=== PATIENT | male | born 1980 | race Caucasian/White ===

== ENCOUNTER 2019-02-24 04:07 | Emergency (ER) | payer OTHER ==
[~2019-02-24] VITALS: Ht 170.2 cm; Wt 94.5 kg
[2019-02-24] MEDS ORDERED: insulin regular, human 10 units/0.1 ml syringe SQ ONE ×3 (04:50→06:25)
--- NOTE | 2019-02-24 05:28 | NUR ---
PT GIVEN REGULAR INSULIN 15 U SQ FOR BLOODSUGAR 500. PT REPORTS THAT HE MISSED HIS LONG ACTING BASAGLAR 52 U LAST NIGHT. AND THAT HE WOULD TAKE HIS LONG ACTING NOW AND [address] WOODARD UPDATED. HE REQUEST TO CHECK THE BLOODSUGAR IN 1/2 HR AND IF 300 OR BELOW PT MAY BE DISCHARGED.
--- NOTE | 2019-02-24 06:10 | NUR ---
Nyla 472, 40 min after administration of regular insulin [address] Jose wahl.
--- NOTE | 2019-02-24 07:02 | NUR ---
BS 413 NOTIFY
--- NOTE | 2019-02-24 08:46 | NUR ---
BS 324. NOTIFY OKAYED TO BE DC'D
[2019-02-24 08:53] VITALS: BP 152/93
== END 2019-02-24 09:18 | disposition home or self-care (01) ==
LOC: ER 04:09
DX: E11.65 Type 2 diabetes mellitus with hyperglycemia (principal)
CPT/HCPCS: 82948; 96372; 99283; J1815